=== PATIENT | male | born 1970 | race Caucasian/White ===

== ENCOUNTER → 2022-03-04 07:45 | Outpatient (BNVA) | payer OTHER, SELFPAY | PROVIDERS: PCP Family Medicine; Referring Provider Family Medicine; Visit Provider Specialist | DX: G56.03 Carpal tunnel syndrome, bilateral upper limbs (principal); R20.0 Anesthesia of skin | CPT/HCPCS: 73110 ==

== ENCOUNTER 2022-03-21 12:05 | Day surgery (SDC) | payer OTHER, SELFPAY ==
[2022-03-20 08:14] VITALS: BMI 34.4
[2022-03-21] MEDS: acetaminophen 1,000 MG/100 ML PIGGYBACK 400 MG IV (13:00)
[2022-03-21] MEDS: CELEcoxib 200 mg Capsule 400 MG PO (13:01)
[2022-03-21] MEDS: sodium chloride 0.9% 1,000 ML 30 ML IV (13:07)
[2022-03-21 13:17] LABS: Anion Gap 15.3 (5-19); Blood Urea Nitrogen 15 mg/dL (6-20); Calcium 9.7 mg/dL (8.5-10.5); Carbon Dioxide 28 mmol/L (22-29); Chloride 100 mmol/L (98-107); Glomerular Filtration Rate 143.2 mL/min (90-130); Glucose 97 mg/dL (65-115); Osmolality Calculated 289 mOsm/kg (285-295); Potassium 4.3 mmol/L (3.5-5.1); Sodium 139 mmol/L (136-145)
--- NOTE | 2022-03-21 14:23 | P.HPUD_ITS ---
Surgery/Procedure H&P Update DATE OF PROCEDURE: March 21, 2022 DATE H&P PERFORMED: 03/07/22 H&P UPDATE INFORMATION: I have reviewed H&P completed within last 30 days, I have examined patient prior to procedure, No changes to prior documentation and H&P is in [facility] EMR on date indicated PREOP DIAGNOSIS: Left carpal tunnel syndrome PLANNED PROCEDURE: Operation Date: 03/21/22 13:40 Proposed Procedures p LEFT CARPAL TUNNEL RELEASE 91949 G56.00(Left) - Malgorzata Pederson MD Related Problem List Diagnoses (1) Carpal tunnel syndrome, left:
[2022-03-21] MEDS: ceFAZolin 2,000 MG in sodium chloride 0.9% (plus) 50 ML 100 MG IV (14:39)
--- NOTE | 2022-03-21 15:01 | ANES.PREANE2 ---
Pre-Anesthetic Assessment Height/Weight: Height 1.78 m Weight 108.862 kg O2 Del Method 03/21/22 12:31 Preop Diagnosis: Left carpal tunnel syndrome Operation Date: 03/21/22 13:40 Proposed Procedures p LEFT CARPAL TUNNEL RELEASE 20121 G56.00(Left) - Malgorzata Pederson MD Familial anesthetic complications: none Was Beta Carito taken within 24 hours: Yes Was Clonidine taken within 24 hours: N/A Last intake: Intake Last Liquid Date 03/21/22 Last Liquid Time 08:00 Last Solid Date 03/20/22 Last Solid Time 19:00 Social No alcohol and No tobacco Exam alert, oriented x 3, clear to auscultation bilaterally and regular rate & rhythm Airway Submandibular: within normal limits Cervical ROM: within normal limits Mallampati: Class II Dentition: full CV/HEM Hypertension Metabolic Morbid Obesity Anesthetic Plan ASA status: 2 Anesthesia: Choice Medications/Allergies Home Medications Medication Instructions Recorded Confirmed Last Taken Type hydrochlorothiazide 25 mg tablet 25 mg PO DAILY 08/06/19 03/20/22 03/20/22 History lisinopril 10 mg tablet 40 mg PO DAILY 08/06/19 03/20/22 03/20/22 History multivitamin 1 tab PO DAILY 08/06/19 03/20/22 03/20/22 History omega-3 fatty acids 1,000 mg 1,000 mg PO DAILY 08/06/19 03/20/22 03/20/22 History capsule atenolol 25 mg tablet 50 mg PO DAILY 03/20/22 03/21/22 03/21/22 History Allergies Allergy/AdvReac Type Severity Reaction Status Date / Time No Known Allergies Allergy Verified 03/20/22 08:12 Current Medications Generic Name Dose Route Start Last Admin Trade Name Freq PRN Reason Stop Dose Admin Sodium Chloride 1,000 mls @ 30 mls/hr 03/21/22 13:00 03/21/22 13:07 Sodium Chloride 0.9% IV 03/22/22 12:59 30 mls/hr .Q24H ANDREZ Administration PFSH Anesthesia Surgical History History of vasectomy Family History Father , in his 60's No problems noted. Mother , in her 60's No problems noted. Social History Smoking and tobacco status: never smoked Alcohol intake: current Alcohol intake frequency: holidays/special occasions only Marital status: Number of children: 1 Current occupational status: employed History of recent travel: No Data Anesthesia 03/21/22 12:55 BMP 03/21/22 12:55 Sodium 139 Potassium 4.3 Chloride 100 Carbon Dioxide 28 BUN 15 Creatinine 0.6 L Glucose 97 Calcium 9.7 Cardiac Studies: No Data to Display
[2022-03-21 15:48] VITALS: BP 152/70; PULSE 72; RESP 18; TEMP 36.3; O2SAT 95
--- NOTE | 2022-03-21 15:49 | P.OP_ITS ---
Operative Report Date of procedure: March 21, 2022 Pre-op diagnosis: Left carpal tunnel syndrome Post-op diagnosis: Left carpal tunnel syndrome Post-op findings: Severe compression across the carpal canal with very thickened transverse carpal ligament. The nerve was an hourglass shape with purplish discoloration. Procedure done: Left carpal tunnel release Specimens removed/disposition: None Pathology: none sent Surgeon: Malgorzata Pederson Assembly Inspector Helper: None Anesthesia: General (LMA, ASA 2) Estimated blood loss (mL): 2 Tourniquet time (min): 29 (At 250 mmHg) IV fluids (mL): 400 Urine output (mL): 0 (No [place]) Complications: None Findings: Severe compression across the carpal canal Condition: stable Disposition: PACU (Then discharged to same-day surgery for discharge to home.) Brief History: Dawit Jimenez is a 51 year old male patient presented to my office for evaluation of bilateral wrist/hand with numbness and weakness.? Patient denies pain but states that the numbness is worse on the left than right.? Patient states symptoms have been getting worse over the past 1.5 years. Patient works at [employer], and he states that he does stretching exercises for his wrists at least twice a day. He had a nerve conduction study which confirmed moderately severe carpal tunnel syndrome. Procedure: The patient was brought to the operating theater. The patient had a [place] block with MAC. The tourniquet was elevated to 250 mmHg for a total tourniquet time of 29 minutes. The patient was also given Ancef 2 g preoperatively. The arm was then prepped and draped with DuraPrep in usual fashion with the arm draped free. A surgical pause was performed. At the time, the surgical pause, we confirmed the site and side of surgery. We also confirmed the patient's identity, appropriate and timely administration of preoperative antibiotics and preoperative surgical markings. An incision was then made along the thenar crease. The incision crossed the wrist joint in a curvilinear fashion. Dissection continued through skin and soft tissues using a scalpel. The palmaris longus was identified along with the transverse carpal ligament. Each of these was released carefully to avoid injury to the median nerve. His skin was quite thick, and subcutaneous tissues were as well. The transverse carpal ligament was significantly thickened. We were able to dissect gently into the carpal canal which was noted to be quite tight with significant compression across the median nerve. The nerve was visualized and was an hourglass shape with purplish discoloration. The canal was subsequently palpated to assure there was no bony encroachment upon the canal. There was a quite thickened fibrous tissue within the canal, and this was opened longitudinally as well. The canal was then palpated distally and proximally to assure that my small finger was passed easily without impingement. Finding this to be so, attention was directed to closure. The wound was irrigated with ropivacaine plain. It was then closed with 2-0 nylon in an interrupted mattress fashion. Sterile dressing was then placed consisting of Dermabond, OpSite, fluffed fluffs, sterile soft roll, and an David wrap. The tourniquet was released after 29 minutes. There were no complications. There were no specimens. The procedure was well tolerated. Plan is the patient will be discharged home. Related Problem List Diagnoses (1) Carpal tunnel syndrome, left:
[2022-03-21 15:50] VITALS: BP 131/82; PULSE 72; RESP 17; O2SAT 92
[2022-03-21 15:55] VITALS: BP 111/94; PULSE 75; RESP 20; O2SAT 95
[2022-03-21 16:00] VITALS: BP 136/113; PULSE 74; RESP 18; O2SAT 95
[2022-03-21 16:10] VITALS: BP 149/83; PULSE 63; RESP 16; TEMP 36.6; O2SAT 97
[2022-03-21 16:45] VITALS: BP 152/89; PULSE 69; RESP 14; O2SAT 97
[2022-03-21] MEDS: HYDROcodone-acetaminophen 5-325 mg Tablet 1 TAB PO (16:54)
--- NOTE | 2022-03-21 17:13 | SUR.PHASEII ---
16:40 wrist splint fitted and applied by occupational therapy.
--- NOTE | 2022-03-21 17:15 | ANE.PACU2 ---
Inpatient post-anesthesia follow up: Airway intact: Yes Vital signs: Temperature 97.8 F Pulse Rate 69 Respiratory Rate 14 Blood Pressure 152/89 Pulse Oximetry 97 Oxygen Delivery Me thod Room Air Oxygen Flow Rate Fraction of Inspir ed Oxygen Hydration adequate: Yes Nausea and vomiting: No Pain level: 1 Mental status: Baseline
== END 2022-03-21 17:05 | disposition home or self-care (01) ==
PROVIDERS: Anesthesiology; PCP Family Medicine; Visit Provider Specialist
PROC: (CPT 64721; principal; 2022-03-21 13:30)
DX: G56.02 Carpal tunnel syndrome, left upper limb (principal); I10 Essential (primary) hypertension; E66.01 Morbid (severe) obesity due to excess calories; Z68.34 Body mass index [BMI] 34.0-34.9, adult
CPT/HCPCS: 64721; 80048; 97760; J0131; J0690; J1100; J2250; J2405; J2704; J3010; J3490; J7030; L3908

== ENCOUNTER 2022-06-12 16:12 | Outpatient (CLI) | payer OTHER, SELFPAY | END 2022-06-12 16:13 | disposition home or self-care (01) | LOC: SPT 16:13 | PROVIDERS: PCP Family Medicine; Visit Provider Specialist | DX: Z46.89 Encounter for fitting and adjustment of other specified devices (principal); G56.01 Carpal tunnel syndrome, right upper limb | CPT/HCPCS: L3908 ==

== ENCOUNTER → 2022-06-28 07:42 | Day surgery (SDC) | payer OTHER, SELFPAY ==
[2022-06-27 13:47] VITALS: BMI 34.4
[2022-06-28] VITALS (10 sets, daily range): BP systolic 117–172; BP diastolic 82–105; PULSE 71–86; RESP 12–18; TEMP 36–36.7; O2SAT 96–99
[2022-06-28] MEDS: sodium chloride 0.9% 1,000 ML 30 ML IV (08:04)
[2022-06-28] MEDS: CELEcoxib 200 mg Capsule 400 MG PO (08:04)
[2022-06-28] MEDS: gabapentin 300 mg Capsule PO (08:05)
[2022-06-28] MEDS: acetaminophen 1,000 MG/100 ML PIGGYBACK 400 MG IV (08:07)
--- NOTE | 2022-06-28 08:10 | P.ANESASSM_ITS ---
Pre-Anesthetic Assessment Height/Weight: Height 1.78 m Weight 108.862 kg Temp Pulse Resp BP Pulse Ox O2 Del Method 97.6 F 85 16 172/105 97 06/28/22 07:51 06/28/22 07:51 06/28/22 07:51 06/28/22 07:51 06/28/22 07:51 06/28/22 07:53 Preop Diagnosis: Right carpal tunnel syndrome Operation Date: 06/28/22 09:30 Proposed Procedures p : RIGHT CARPAL TUNNEL RELEASE [id number],G56.00(Right) - Malgorzata Pederson MD Familial anesthetic complications: None Was Beta Carito taken within 24 hours: Yes Was Clonidine taken within 24 hours: N/A Last intake: Intake Last Liquid Date 06/27/22 Last Liquid Time 20:00 Last Solid Date 06/27/22 Last Solid Time 18:00 Social No alcohol and No tobacco Exam alert, oriented x 3, clear to auscultation bilaterally and regular rate & rhythm Airway Mallampati: Class III Dentition: full CV/HEM Hypertension Metabolic Morbid Obesity Anesthetic Plan ASA status: 3 Anesthesia: General Risk of > 500 ml blood loss (7ml/kg in children): No Medications/Allergies Home Medications Medication Instructions Recorded Confirmed Last Taken Type multivitamin 1 tab PO DAILY 08/06/19 06/27/22 06/27/22 History omega-3 fatty acids 1,000 mg 1,000 mg PO DAILY 08/06/19 06/27/22 06/27/22 History capsule atenolol 50 mg tablet 50 mg PO DAILY #90 tabs 05/28/22 06/27/22 06/27/22 Rx hydrochlorothiazide 25 mg tablet 25 mg PO DAILY #90 tabs 05/28/22 06/27/22 06/27/22 Rx lisinopril 40 mg tablet 40 mg PO DAILY #90 tabs 05/28/22 06/27/22 06/27/22 Rx COCK UP SPLINT #1 ea 06/12/22 06/27/22 Unknown Rx Allergies Allergy/AdvReac Type Severity Reaction Status Date / Time No Known Allergies Allergy Verified 06/27/22 13:46 [facility] Anesthesia Medical History Carpal tunnel syndrome, left Hypertension Surgical History History of vasectomy Family History Father , in his 60's No problems noted. Mother , in her 60's No problems noted. Social History Smoking and tobacco status: never smoked Alcohol intake: current Alcohol intake frequency: holidays/special occasions only Marital status: Number of children: 1 Current occupational status: employed Data Anesthesia Cardiac Studies: No Data to Display
--- NOTE | 2022-06-28 08:11 | P.HPUD_ITS ---
Surgery/Procedure H&P Update DATE OF PROCEDURE: June 28, 2022 DATE H&P PERFORMED: 06/12/22 H&P UPDATE INFORMATION: I have reviewed H&P completed within last 30 days, I have examined patient prior to procedure, No changes to prior documentation and H&P is in [facility] [place] [place] EMR on date indicated PREOP DIAGNOSIS: Right carpal tunnel syndrome PLANNED PROCEDURE: Operation Date: 06/28/22 09:30 Proposed Procedures p : RIGHT CARPAL TUNNEL RELEASE [id number],G56.00(Right) - Malgorzata Pederson MD Related Problem List Diagnoses (1) Right carpal tunnel syndrome:
[2022-06-28] MEDS: ceFAZolin 2,000 MG in sodium chloride 0.9% (plus) 50 ML 100 MG IV (09:02)
--- NOTE | 2022-06-28 09:52 | PC.NURSE ---
Pt arrived to PACU, awake, A&O x3, dressing to right hand/wrist C/D/I, right fingers p/w/d, cap refill <3 seconds, able to wiggle fingers. Right hand elevated on pillow.
--- NOTE | 2022-06-28 10:04 | PM.OP ---
Operative Report Date of procedure: June 28, 2022 Pre-op diagnosis: Right carpal tunnel syndrome Post-op diagnosis: Right carpal tunnel syndrome Post-op findings: Severe compression across the carpal canal with very thickened transverse carpal ligament.? Hourglass shape and purplish discoloration of the median nerve. Procedure done: Right carpal tunnel release Pathology: none sent Surgeon: Malgorzata Pederson Senior Analyst Programmer: None Anesthesia: General (Per LMA, ASA 3) Estimated blood loss (mL): 2 Tourniquet time (min): 20 (At 250 mmHg) IV fluids (mL): 700 Urine output (mL): 0 (No [place]) Complications: None Condition: stable Disposition: PACU (Then return to same-day surgery for discharge to home) Brief History: Dawit Jimenez is a 52 year old male patient presented to my office for evaluation of bilateral wrist/hand with numbness and weakness.? Initially, the patient had more symptoms in the left than the right hand, and therefore, we performed carpal tunnel release to the left on March 21, 2022. He presents today with continuing symptoms on the right, and he has been scheduled for surgical intervention to this side in the form of right carpal tunnel release. Patient states symptoms have been getting worse over the past 1.5 years. Patient works at [employer], and he states that he does stretching exercises for his wrists at least twice a day.? He had a nerve conduction study which confirmed moderately severe carpal tunnel syndrome bilaterally. With regards to the right carpal tunnel release, the patient was seen in the office. Questions were answered and the surgical procedure was scheduled. Procedure: The patient was brought to the operating theater. The patient had a general anesthesia per LMA, ASA 3. The tourniquet was elevated to 250 mmHg for a total tourniquet time of 20 minutes. The patient was also given Ancef 2 g preoperatively. The arm was then prepped and draped with DuraPrep in usual fashion with the arm draped free. A surgical pause was performed. At the time, the surgical pause, we confirmed the site and side of surgery. We also confirmed the patient's identity, appropriate and timely administration of preoperative antibiotics and preoperative surgical markings. An incision was then made along the thenar crease. The incision crossed the wrist joint in a curvilinear fashion. Dissection continued through skin and soft tissues using a scalpel. The palmaris longus was identified along with the transverse carpal ligament. Each of these was released carefully to avoid injury to the median nerve.? His skin was quite thick, and subcutaneous tissues were as well.? The transverse carpal ligament was significantly thickened.? We were able to dissect gently into the carpal canal which was noted to be quite tight with significant compression across the median nerve. The nerve was visualized and was an hourglass shape with purplish discoloration. The canal was subsequently palpated to assure there was no bony encroachment upon the canal. There was a quite thickened fibrous tissue within the canal, and this was opened longitudinally as well. The canal was then palpated distally and proximally to assure that my small finger was passed easily without impingement. Finding this to be so, attention was directed to closure. The wound was irrigated with ropivacaine plain. It was then closed with 2-0 nylon in an interrupted mattress fashion. Sterile dressing was then placed consisting of Dermabond, OpSite, fluffed fluffs, sterile soft roll, and an David wrap. The tourniquet was released after 20 minutes. There were no complications. There were no specimens. The procedure was well tolerated. Plan is the patient will be discharged home. Related Problem List Diagnoses (1) Right carpal tunnel syndrome:
[2022-06-28] MEDS: sodium chloride 0.9% 1,000 ML 50 ML (11:00)
--- NOTE | 2022-06-28 12:24 | ANE.PACU2 ---
Inpatient post-anesthesia follow up: Airway intact: Yes Vital signs: Temperature 96.9 F Pulse Rate 75 Respiratory Rate 16 Blood Pressure 141/82 Pulse Oximetry 96 Oxygen Delivery Me thod Room Air Oxygen Flow Rate Fraction of Inspir ed Oxygen Hydration adequate: Yes Nausea and vomiting: No Pain level: 1 Mental status: Baseline
== END | disposition home or self-care (01) ==
PROVIDERS: PCP Family Medicine; Visit Provider Specialist
PROC: (CPT 64721; principal; 2022-06-28 09:20)
DX: G56.01 Carpal tunnel syndrome, right upper limb (principal); I10 Essential (primary) hypertension; E66.01 Morbid (severe) obesity due to excess calories; Z68.34 Body mass index [BMI] 34.0-34.9, adult
CPT/HCPCS: 64721; J0131; J0690; J1100; J1885; J2405; J2704; J3010; J3490; J7030

== ENCOUNTER 2023-05-22 06:39 | Day surgery (SDC) | payer OTHER, SELFPAY ==
[2023-05-22 06:47] VITALS: BP 167/91; PULSE 88; RESP 18; TEMP 36.9; O2SAT 96
--- NOTE | 2023-05-22 06:48 | W.PM.OPSFHP ---
Same Day Surgery H&P Indication for Procedure/HPI DATE OF PROCEDURE: May 22, 2023 CHIEF COMPLAINT/INDICATIONFOR SURGICAL PROCEDURE: need for screening colonoscopy PREOP DIAGNOSIS: need for screening colonoscopy PLANNED PROCEDURE: Operation Date: 05/22/23 07:40 [place] [address] colon G0121 screen colon A risk Z12.11(Not Applicable) - Trell Stinson MD Medications/Allergies* Home Medications Medication Instructions Recorded Confirmed Type multivitamin 1 tab PO DAILY 08/06/19 05/21/23 History omega-3 fatty acids 1,000 mg 1,000 mg PO DAILY 08/06/19 05/21/23 History capsule Allergies/Adverse Reactions Allergy/AdvReac Type Severity Reaction Status Date / Time No Known Allergies Allergy Verified 05/21/23 06:27 Pertinent History/Comorbid Conditions* Medical History (Updated 12/04/22 @ 12:42 by Neal Casillas MD) Hypertension Carpal tunnel syndrome, left Surgical History (Updated 12/04/22 @ 12:20 by Neal Casillas MD) History of carpal tunnel surgery Bilateral History of vasectomy Family History Father, in his 60's Mother, in her 60's Social History Smoking and tobacco/nicotine status: never used tobacco/nicotine Alcohol intake: current Alcohol intake frequency: holidays/special occasions only Marital status: Number of children: 1 Current occupational status: employed Pertinent Exam Findings alert, oriented x 3, clear to auscultation bilaterally and regular rate & rhythm Recommendations Surgery/Procedure today Coding Level of Care Code Acute Code for Chg Fwd
--- NOTE | 2023-05-22 06:58 | P.ANESASSM_ITS ---
Pre-Anesthetic Assessment Height/Weight: Height 1.75 m Temp Pulse Resp BP Pulse Ox O2 Del Method 98.4 F 88 18 167/91 96 Room Air 05/22/23 06:47 05/22/23 06:47 05/22/23 06:47 05/22/23 06:47 05/22/23 06:47 05/22/23 06:47 Preop Diagnosis: need for screening colonoscopy Operation Date: 05/22/23 07:40 [place] [id number] colon G0121 screen colon A risk Z12.11(Not Applicable) - Trell Stinson MD Was Beta Carito taken within 24 hours: Yes Was Clonidine taken within 24 hours: N/A Last intake: Intake Last Liquid Date 05/21/23 Last Liquid Time 22:00 Last Solid Date 05/20/23 Last Solid Time 19:00 Social No alcohol and No tobacco Exam alert, oriented x 3 and clear to auscultation bilaterally Airway Submandibular: within normal limits Cervical ROM: within normal limits Mallampati: Class III Dentition: full History/ROS No significant history except as noted Pulmonary None reported CV/HEM None reported None reported Hepatic None reported GI None reported Metabolic Morbid Obesity [facility] [place] Osteoarthritis/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) Neuropsych None reported Anesthetic Plan ASA status: 2 Anesthesia: Anesthesia Evaluation Risk of > 500 ml blood loss (7ml/kg in children): No Medications/Allergies Home Medications Medication Instructions Recorded Confirmed Last Taken Type multivitamin 1 tab PO DAILY 08/06/19 05/21/23 05/21/23 History omega-3 fatty acids 1,000 mg 1,000 mg PO DAILY 08/06/19 05/21/23 05/21/23 History capsule atenolol 50 mg tablet 50 mg PO DAILY #90 tabs 05/16/23 05/21/23 05/21/23 Rx hydrochlorothiazide 25 mg tablet 25 mg PO DAILY #90 tabs 05/16/23 05/21/23 05/21/23 Rx lisinopril 40 mg tablet 40 mg PO DAILY #90 tabs 05/16/23 05/21/23 05/21/23 Rx Allergies Allergy/AdvReac Type Severity Reaction Status Date / Time No Known Allergies Allergy Verified 05/21/23 06:27 [facility] Anesthesia Medical History Carpal tunnel syndrome, left Hypertension Surgical History History of carpal tunnel surgery Bilateral History of vasectomy Family History Father , in his 60's No problems noted. Mother , in her 60's No problems noted. Social History Smoking and tobacco/nicotine status: never used tobacco/nicotine Alcohol intake: current Alcohol intake frequency: holidays/special occasions only Marital status: Number of children: 1 Current occupational status: employed Data Anesthesia Cardiac Studies: No Data to Display
[2023-05-22] MEDS: sodium chloride 0.9% 1,000 ML 30 ML IV (07:04)
[2023-05-22 07:55] VITALS: BP 124/86; PULSE 84; RESP 18; TEMP 36.2; O2SAT 96
[2023-05-22 08:00] VITALS: BP 120/80; PULSE 89; RESP 18; O2SAT 94
[2023-05-22 08:10] VITALS: BP 121/87; PULSE 84; RESP 18; O2SAT 95
--- NOTE | 2023-05-22 08:30 | ANE.PACU2 ---
Inpatient post-anesthesia follow up: Airway intact: Yes Vital signs: Temperature 97.2 F Pulse Rate 84 Respiratory Rate 18 Blood Pressure 121/87 Pulse Oximetry 95 Oxygen Delivery Me thod Room Air Oxygen Flow Rate Fraction of Inspir ed Oxygen Hydration adequate: Yes Nausea and vomiting: No Pain level: 1 Mental status: Baseline
== END 2023-05-22 08:31 | disposition home or self-care (01) ==
PROVIDERS: PCP Family Medicine; Visit Provider Surgery
PROC: 0DJD8ZZ Inspection of Lower Intestinal Tract, Via Natural or Artificial Opening Endoscopic (ICD-10-PCS; CPT 45378; principal; 2023-05-22 07:40)
DX: Z12.11 Encounter for screening for malignant neoplasm of colon (principal); I10 Essential (primary) hypertension; K57.30 Diverticulosis of large intestine without perforation or abscess without bleeding; E66.01 Morbid (severe) obesity due to excess calories; Z68.35 Body mass index [BMI] 35.0-35.9, adult
CPT/HCPCS: 45378; J2704; J7030

== ENCOUNTER → 2023-07-25 09:41 | Outpatient (BNVA) | payer OTHER, SELFPAY | PROVIDERS: PCP Family Medicine; Visit Provider Family Medicine | DX: E53.8 Deficiency of other specified B group vitamins (principal); E55.9 Vitamin D deficiency, unspecified; R53.81 Other malaise; R53.83 Other fatigue | CPT/HCPCS: 82306; 82607; 84439; 84443 ==

== ENCOUNTER 2023-09-01 08:06 | Outpatient (CLI) | payer OTHER, SELFPAY ==
--- NOTE | 2023-09-01 08:45 | MR_ITS ---
WS: [id number] MRI BRAIN WITH AND WITHOUT CONTRAST HISTORY: Memory loss, Headaches, Fatigue COMPARISON: None available. TECHNIQUE: Multiplanar imaging performed through the brain with MultiHance 20 ml's IV. No acute infarcts are seen. Reina-white matter differentiation is well preserved. Mild small vessel is chemic changes. No prior infarct. Very mild atrophy and volume loss as appropriate for patient's age. No susceptibility artifacts or prior lacunar infarcts. Ventricles and extra-axial spaces are normal. Clivus and pituitary gland are normal. Visualized posterior fossa and brainstem are also normal. Postcontrast images are negative for masses or vascular malformations. Dural venous sinuses are normal. Paranasal sinuses: Small mucous retention cysts in the floor the maxillary sinuses. Mastoid air cells: Normal. Calvarium and scalp: Normal. MR/MR head wo/w con [id number] IMPRESSION: 1. No acute infarct or hemorrhage. 2. Mild atrophy and small vessel ischemic disease. 3. No enhancing masses or vascular malformations.
[2023-09-01] MEDS: gadobenate dimeglumine 20 mL vial IV (09:07)
== END 2023-09-01 08:07 | disposition home or self-care (01) ==
LOC: RAD 08:07
PROVIDERS: PCP Family Medicine; Visit Provider Family Medicine
DX: R41.3 Other amnesia (principal); R51.9 Headache, unspecified; R42 Dizziness and giddiness; G31.9 Degenerative disease of nervous system, unspecified; I67.89 Other cerebrovascular disease
CPT/HCPCS: 70553; A9577

== ENCOUNTER 2024-04-12 20:00 | Outpatient (CLI) | payer OTHER, SELFPAY | END 2024-04-12 20:01 | disposition home or self-care (01) | LOC: SLEEP 22:59 | PROVIDERS: PCP Family Medicine; Visit Provider Family Medicine | DX: G47.33 Obstructive sleep apnea (adult) (pediatric) (principal); G47.61 Periodic limb movement disorder | CPT/HCPCS: 95810 ==